=== PATIENT | female | born 2000 ===

== ENCOUNTER 2022-11-08 12:19 | Emergency (ER) | payer BC, SELFPAY ==
[2022-11-08 12:57] VITALS: BP 126/77; PULSE 85; RESP 20; TEMP 35.9; O2SAT 99; BMI 38.8
[2022-11-08 14:12] LABS: Appearance Urine Clear (Clear); Bilirubin Urine Negative (Negative); Blood Urine Negative (Negative); Color Urine Yellow (Yellow); Glucose Urine Negative (Negative); Ketones Urine 3+ (Negative); Leukocyte Esterase Urine Negative (Negative); Nitrite Urine Negative (Negative); Protein Urine Negative (Negative); Urobilinogen Urine 0.2 (0.2-1.0); pH Urine 7.5 (5.0-8.5)
[2022-11-08 14:28] LABS: Bacteria Urine Moderate; RBC Urine 0-2 (0-2); Squamous Epithelial Cell Urine Many (None-Few)
--- NOTE | 2022-11-08 14:49 | ED.BACK ---
HPI - Back Pain/Injury General Time Seen by Provider: 14:50 Date Seen: 11/08/22 Chief Complaint: Back Injury/Pain Stated Complaint: back pain Time Seen by Provider: 11/08/22 12:31 Source: patient, family, RN notes reviewed and old records reviewed Mode of arrival: ambulatory Limitations: no limitations History of Present Illness HPI Narrative: 22-year-old who is at 9+ 2 by LMP September 04 presents with back pain. Patient says that she has had this for about a month off and on, related to heavy lifting at work. No chest pain or shortness of breath. No urinary symptoms. Took Tylenol with some improvement. Related Data Previous Rx's Medication Instructions Recorded lidocaine 5 % topical patch 2 patch topical DAILY #15 ea 11/08/22 (Lidoderm) ondansetron 4 mg disintegrating 4 mg PO Q6H PRN nausea and 11/08/22 tablet vomiting #20 tabs Allergies Allergy/AdvReac Type Severity Reaction Status Date / Time amoxicillin [From Amoxil] Allergy Verified 11/08/22 12:56 Cephalosporins Allergy Verified 11/08/22 12:56 Penicillins Allergy Verified 11/08/22 12:56 Exam Narrative: Exam Narrative: General: Well-developed and well-nourished, no acute distress Head: Atraumatic and normocephalic Eyes: Pupils are equal reactive, extraocular motions intact, conjunctiva clear ENT: External nose and ears are normal, posterior pharynx without erythema or exudate Neck: No midline cervical tenderness, full spontaneous range of motion the neck, trachea midline, no adenopathy Heart: Regular rate and rhythm no murmurs or thrills Lungs: Clear to auscultation bilaterally without wheezes or crackles Abdomen: Soft, nontender, nondistended with active bowel sounds Musculoskeletal: Bilateral thoracic back tenderness, no midline tenderness Neurologic: Awake, alert, and oriented x3, no gross focal neurologic deficits, cranial nerves intact as tested Psych: Mood and affect are appropriate Skin: No rashes Const: Vital Signs, click to edit/add: Vital Signs - 24 hr 11/08/22 12:57 Temperature 96.6 F L Pulse Rate [Pulse Oximeter] 85 Respiratory Rate 20 Blood Pressure [Ri ght Upper Arm] 126/77 Pulse Oximetry 99 Oxygen Delivery Me thod Room Air Course Course Hospital Course: Patient presents with upper back pain which is been going on for about a month off and on, mostly related to work. On initial exam here, she is awake alert, has tenderness, lungs are clear. Symptoms are most consistent with thoracic strain. Patient is , no NSAIDs can be given but will be Lidoderm patches, continue Tylenol. Urinalysis independently interpreted by me contaminated with squamous cells and bacteria but no other signs of infection, no ketones or hematuria to suggest kidney stone and patient has no flank pain or CVA tenderness to percussion. No abdominal pain, cramping, vaginal bleeding, patient can follow-up with OB this week. Vital Signs Vital signs: Initial Vital Signs Temperature 96.6 F L 11/08/22 12:57 Temperature Source Temporal Artery Scan 11/08/22 12:57 Pulse Rate 85 11/08/22 12:57 Pulse Rhythm Regular 11/08/22 12:57 Respiratory Rate 20 11/08/22 12:57 Blood Pressure 126/77 11/08/22 12:57 Blood Pressure Mean 93 11/08/22 12:57 Blood Pressure Position Sitting 11/08/22 12:57 Pulse Oximetry 99 11/08/22 12:57 Oxygen Delivery Method Room Air 11/08/22 12:57 Vital Signs Temperature 96.6 F L 11/08/22 12:57 Pulse Rate 85 11/08/22 12:57 Respiratory Rate 20 11/08/22 12:57 Blood Pressure 126/77 11/08/22 12:57 Pulse Oximetry 99 11/08/22 12:57 Oxygen Delivery Method Room Air 11/08/22 12:57 Temperature 96.6 F L 11/08/22 12:57 Pulse Rate 85 11/08/22 12:57 Respiratory Rate 20 11/08/22 12:57 Blood Pressure 126/77 11/08/22 12:57 Pulse Oximetry 99 11/08/22 12:57 Oxygen Delivery Method Room Air 11/08/22 12:57 MDM - Back Pain/Injury Lab Data Labs: Lab Results 11/08/22 Range/Units 13:39 Urine Color Yellow (Yellow) Urine Appearance Clear (Clear) Urine pH 7.5 (5.0-8.5) Ur Specific [place] 1.020 (1.000-1.030) Urine Protein Negative (Negative) Urine Glucose (UA) Negative (Negative) Urine Ketones 3+ A (Negative) Urine Blood Negative (Negative) Urine Nitrite Negative (Negative) Urine Bilirubin Negative (Negative) Urine Urobilinogen 0.2 (0.2-1.0) Ur Leukocyte Esterase Negative (Negative) Urine RBC 0-2 (0-2) Urine WBC 2-5 (0-5) Ur Squamous Epith Cells Many A (None-Few) Urine Bacteria Moderate A (None) Discharge Plan Discharge Clinical Impression: Nausea and vomiting during , Thoracic back pain Patient Disposition: Home, Self-Care Condition: Stable Instructions: Thoracic Back Strain (ED) Additional Instructions: Take Tylenol as needed for pain. Ice packs or warm packs for comfort. Gentle massage. Follow up with OB. Activity Level: Activity as Tolerated Discharge Diet: Regular Prescriptions: New ondansetron 4 mg tablet,disintegrating 4 mg PO Q6H PRN (Reason: nausea and vomiting) Qty: 20 0RF lidocaine [Lidoderm] 5 % adhesive patch,medicated 2 patch topical DAILY Qty: 15 0RF Rx Instructions: leave on most painful area for up to 12 hrs Follow Up/Referrals: Provider,Not a Local [Primary Care Provider] - Stand Alone Forms: MyHealth Info Instructions
== END 2022-11-08 15:37 | disposition home or self-care (01) ==
LOC: ED 15:21
PROVIDERS: Emergency Provider Family Medicine
DX: O21.9 Vomiting of pregnancy, unspecified (principal); M54.6 Pain in thoracic spine
CPT/HCPCS: 81001; 87086; 99283

== ENCOUNTER 2022-11-13 09:11 | Outpatient (CLI) | payer BC, SELFPAY ==
--- NOTE | 2022-11-13 09:15 | CRLHL7_ITS ---
For Patients: As a result of the Century Cures Act, medical imaging exams and procedure reports are released immediately into your electronic medical record. You may view this report before your referring provider. If you have questions, please contact your health care provider. INDICATION: First trimester scan, establish dates. COMPARISON: None. TECHNIQUE: Real-time aguillon-scale imaging of the pelvis was performed. FINDINGS: Sonographic imaging demonstrates a single living intrauterine gestation. The embryo demonstrates a regular cardiac rate measuring 174 beats per minute. The embryo`s crown-rump length measurement of 2.4 cm corresponds to a gestational age of 9 weeks 1 day with a sonographic due date of 06/17/2023. There is a normal-appearing yolk sac. There are no gross abnormalities noted within the embryo at this early state of development. The gestational sac has a normal appearance. There is no evidence of a perigestational hemorrhage. The amount of fluid within the sac appears appropriate for gestational age. The cervix is closed. The myometrium appears normal. The ovaries are of normal size. Corpus luteal cyst left ovary. There are no suspicious fluid collections noted in the cul-de-sac. IMPRESSION: Normal first trimester OB ultrasound exam. Gestational age calculated at 9 weeks 1 day with a sonographic due date of 06/17/2023. Dictated by Malcolm Ochoa MD @ 11/14/2022 4:35:07 PM (Electronically Signed)
== END 2022-11-13 09:12 | disposition home or self-care (01) ==
LOC: US 09:12
PROVIDERS: Visit Provider Physician Assistant
DX: Z34.91 Encounter for supervision of normal pregnancy, unspecified, first trimester (principal); Z3A.09 9 weeks gestation of pregnancy
CPT/HCPCS: 76801; 86592; 86703; 86762; 86787; 86803; 86850; 86900; 86901; 87086; 87340

== ENCOUNTER 2022-11-26 21:44 | Outpatient (CLI) | payer BC, SELFPAY | END 2022-11-26 21:45 | disposition home or self-care (01) | LOC: NFLDLAB 01-03 21:45 | PROVIDERS: Visit Provider Physician Assistant | DX: D68.51 Activated protein C resistance (principal) | CPT/HCPCS: 85230 ==

== ENCOUNTER 2022-12-11 14:47 | Outpatient (CLI) | payer BC, SELFPAY | END 2022-12-11 14:48 | disposition home or self-care (01) | LOC: NFLDREF 12-16 11:45 | PROVIDERS: Visit Provider Physician Assistant | DX: Z34.92 Encounter for supervision of normal pregnancy, unspecified, second trimester (principal); Z3A.14 14 weeks gestation of pregnancy | CPT/HCPCS: 87491; 87591 ==

== ENCOUNTER 2023-01-22 13:54 | Outpatient (CLI) | payer BC, SELFPAY ==
--- NOTE | 2023-01-22 14:00 | CRLHL7_ITS ---
For Patients: As a result of the Century Cures Act, medical imaging exams and procedure reports are released immediately into your electronic medical record. You may view this report before your referring provider. If you have questions, please contact your health care provider. INDICATION: Evaluate anatomy. COMPARISON: 11/13/2022 TECHNIQUE: Real time aguillon scale imaging of the fetus was performed as well as color Doppler analysis of the umbilical vessels. FINDINGS: Sonographic imaging demonstrates a single living intrauterine gestation. Fetus demonstrates a regular cardiac rate of 157 beats per minute. Fetus has a variable position. The placenta lies posteriorly. The edge of the placenta is located 1.3 cm from the internal cervical os. Amniotic fluid volume appears normal. Single deepest vertical pocket: 3.4 cm. The cervix is closed and measures 3.1 cm in length. The composite ultrasound gestational age is calculated at 20 weeks 0 days with an estimated sonographic due date of 06/11/2023. The estimated weight is 326 grams which lies at the 46th %. The following biometric measurements were obtained: Biparietal diameter: 4.6 cm/20 weeks 0 day 50th% Head circumference: 17.0 cm/19 weeks 4 days 23rd% Abdominal circumference: 14.5 cm/19 weeks 6 days 39th% Femur length: 3.3 cm/20 weeks 2 days 53rd% The HC/AC ratio measures: 1.17 range (1.08-1.25) On anatomic survey, there is a normal appearance of the cerebral ventricles, cavum septi pellucidi, cisterna magna and cerebellum. The nose and lips appear normal. Incomplete visualization of the profile due to position. The cervical, thoracic and lumbar spine are well visualized and appear normal. There is a normal four-chamber heart view and the left and right ventricular outflow tracts appear normal. The diaphragm and stomach appear normal. The kidneys and bladder also appear normal. There is a normal three-vessel cord and cord insertion site. The four extremities appear normal. IMPRESSION: Concordance of clinical and sonographic dating. Incomplete visualization of the profile due to position. Remainder of the anatomic survey normal. Placental edge is located 1.3 cm from the internal cervical os with transabdominal imaging. Patient declined transvaginal technique for further evaluation of this finding. Dictated by Malcolm Ochoa MD @ 01/25/2023 4:00:12 PM (Electronically Signed)
== END 2023-01-22 13:55 | disposition home or self-care (01) ==
LOC: US 13:55
PROVIDERS: Visit Provider Obstetrics & Gynecology
DX: Z34.92 Encounter for supervision of normal pregnancy, unspecified, second trimester (principal); Z3A.20 20 weeks gestation of pregnancy
CPT/HCPCS: 76805

== ENCOUNTER 2023-02-04 07:00 | Outpatient (CLI) | payer BC, SELFPAY ==
--- NOTE | 2023-02-04 07:15 | CRLHL7_ITS ---
For Patients: As a result of the Century Cures Act, medical imaging exams and procedure reports are released immediately into your electronic medical record. You may view this report before your referring provider. If you have questions, please contact your health care provider. INDICATION: OBESITY UNSPECIFIED, follow-up missing anatomy COMPARISON: 01/22/2023 TECHNIQUE: Real time aguillon scale imaging of the fetus was performed. FINDINGS: Sonographic imaging demonstrates a single living intrauterine gestation. Fetus demonstrates a regular cardiac rate of 149 beats per minute. Fetus has a vertex position. The placenta lies posteriorly. Amniotic fluid volume appears normal and there is a single deepest vertical pocket: 5.5 cm. The cervix is closed and measures 3.4 cm. The edge of the placenta is located 2.1 cm from the internal cervical os. Normal profile. IMPRESSION: Posterior placental edge is located 2.1 cm from the internal cervical os. Normal profile. Dictated by Malcolm Ochoa MD @ 02/04/2023 8:25:23 AM (Electronically Signed)
== END 2023-02-04 07:01 | disposition home or self-care (01) ==
PROVIDERS: Visit Provider Obstetrics & Gynecology
DX: O99.210 Obesity complicating pregnancy, unspecified trimester (principal)
CPT/HCPCS: 76816

== ENCOUNTER 2023-03-19 09:10 | Outpatient (CLI) | payer BC, SELFPAY | END 2023-03-19 09:11 | disposition home or self-care (01) | LOC: NFLDREF 03-24 12:22 | PROVIDERS: Visit Provider Obstetrics & Gynecology | DX: Z34.93 Encounter for supervision of normal pregnancy, unspecified, third trimester (principal); Z3A.28 28 weeks gestation of pregnancy | CPT/HCPCS: 86592 ==

== ENCOUNTER 2023-04-30 14:19 | Outpatient (CLI) | payer BC, SELFPAY ==
--- OUTSIDE RECORDS SUMMARY | 2023-05-03 08:18 | XMS_ITS | Clinical Summary ---
Author Name Unknown Organization [facility] [facility] Address [place], [place] [address] Care Team Providers Care Stone [employer]ber Name Role Phone Pcp, No Primary Care Provider Unavailabl e Allergies Active Allergy Reactions Criticality Noted Date Comments Amoxicillin Hives 07/29/2022 Cephalosporins *Unknown 07/29/2022 Penicillins Throat Swelling/Closing High 07/29/2022 Medications No known medications Active Problems Problem Noted Date Diagnosed Date Asthma, mild intermittent 07/29/2022 Overview: Not currently on medication thinks was on Albuterol Family History Medical History Relation Name Comments ADD / ADHD Brother Hyperlipidemia Father Hyperlipidemia Mother Hypertension Mother Blood Disease Sister 1 factor 7 defic iency Heart defect Sister 1 Blood Disease Sister 2 Factor 7 def Good Health Sister 3 Relation Name Status Comments Brother Father Mother Sister 1 Sister 2 Alive Sister 3 Alive Social History Tobacco Use Types Packs/Day Years Used Date Smoking Tobacco: Never Smokeless Tobacco: Never Tobacco Cessation:Counseling Given: Not Answered Alcohol Use Standard Drinks/Week Comments Not Currently 0 (1 standard drink = 0.6 oz pur e alcohol) Social Connections Answer Date Recorded Frequency of Communication with Friends and Fami ly Not on file 07/29/2022 Sex and Gender Information Value Date Recorded Sex Assigned at Not on file Gender Identity Not on file Sexual Orientation Not on file Obstetrics History Last Filed Vital Signs Vital Sign Reading Time Taken Comments Blood Pressure 127/81 09/14/2022 2:05 PM CDT Pulse 89 09/14/2022 2:05 PM CDT Temperature 37 ??C (98.6 ??F) 09/14/2022 2:05 PM CDT Respiratory Rate - - Oxygen Saturation 98% 09/14/2022 2:05 PM CDT Inhaled Oxygen Concentration - - Weight 94.3 kg (207 lb 12.8 oz) 09/14/2022 2:05 PM CDT Height - - Body Mass Index - - Plan of Treatment Health Maintenance Due Date Last Done Comments Pneumococcal series for age 6-64 (1 of 2 - PCV) 10/21/2005 HPV series for age 9-26 (1 - 2-dose series) 10/21/2010 Tdap 10/21/2010 Depression screening for age 12+ 2011 HIV for age 15-65 10/21/2014 Chlamydia for age 16-24 2015 BMI (ht and wt on same day) for age 18+ 10/21/2017 Hepatitis C screening for age 18-79 10/21/2017 Tetanus booster 2019 Pap test for age 21-65 10/21/2020 COVID-19 vaccine series (2022- season) 2022 08/26/2021, 06/21/2020, 05/23/2020 Influenza for age 9-49 11/20/2022 Care Teams Stone Rubber Relationship Specialty Start Date End Date Pcp, No . PCP - General 07/29/22
== END 2023-04-30 14:20 | disposition home or self-care (01) ==
LOC: NFLDREF 05-03 08:14
PROVIDERS: Visit Provider Obstetrics & Gynecology
DX: Z34.83 Encounter for supervision of other normal pregnancy, third trimester (principal)
CPT/HCPCS: 82728

== ENCOUNTER 2023-05-14 14:00 | Outpatient (CLI) | payer BC, SELFPAY | END 2023-05-14 14:01 | disposition home or self-care (01) | LOC: NFLDREF 05-26 12:50 | PROVIDERS: Visit Provider Obstetrics & Gynecology | DX: Z34.93 Encounter for supervision of normal pregnancy, unspecified, third trimester (principal) | CPT/HCPCS: 87081; 87653 ==

== ENCOUNTER 2023-05-18 11:43 | Outpatient (CLI) | payer BC, SELFPAY ==
[2023-05-18 12:07] VITALS: BP 108/59; PULSE 103; PULSE 90; O2SAT 96
[2023-05-18 12:09] VITALS: RESP 18; TEMP 36.6
--- NOTE | 2023-05-18 12:46 | PC.OBNST ---
The provider's electronic signature indicates the NST is reactive/appropriate for gestational age. *Note to provider: If an addendum is required, open the patient's chart and click on the note under the Nurse/Allied Health tab.
--- NOTE | 2023-05-18 12:50 | PC.OBNST ---
NST Note NST Note Start: 05/18/23 12:41 Freq: ONCE Status: Active Protocol: Document 05/18/23 12:47 LAURA (Rec: 05/18/23 12:50 LAURA [email or web address]) NST Note 1 Para (# of births) 0 EDC 06/11/23 Gestational Age In Weeks & Days 36 Weeks & 4 Days Patient Presented with Complaint(s) of Decreased movement Other Complaints Pt called [facility] triage with c/o no movement since last night. Struggled with N/V overnight. Reactive Yes Appropriate for Gestational Age Yes JACINTA Hughes RN Date 05/18/23 Reactive Yes Appropriate for Gestational Age Yes JACINTA Wilde RN Date 05/18/23 OB NST charge Yes Complete NST Note via Write Note Yes The provider's electronic signature indicates the NST is reactive/appropriate for gestational age. *Note to provider: If an addendum is required, open the patient's chart and click on the note under the Nurse/Allied Health tab.
== END 2023-05-18 12:38 | disposition home or self-care (01) ==
LOC: OB OUT 11:44 → OB 11:44
PROVIDERS: Visit Provider Obstetrics & Gynecology
DX: O36.8130 Decreased fetal movements, third trimester, not applicable or unspecified (principal); Z3A.36 36 weeks gestation of pregnancy
CPT/HCPCS: 59025; G0463

== ENCOUNTER 2023-05-21 07:17 | Outpatient (CLI) | payer BC, SELFPAY ==
--- NOTE | 2023-05-21 07:15 | US_ITS ---
Patient: VÍCTOR SHARP Facility:?[facility] Patient ID:?[id number] Site Patient ID:?[id number]. Site :?[id number] Study:?US-OB Pelvis BPP W GROWTH-05/21/2023 7:44:33 AM Ordering Physician:DICK WEBB Final Report: INDICATION: OBESITY TECHNIQUE: Real time aguillon scale imaging of the fetus was performed. COMPARISON: 02/04/2023 FINDINGS: Sonographic imaging demonstrates a single living intrauterine gestation. Fetus demonstrates a regular cardiac rate of 129 beats per minute. Fetus has a vertex position. The placenta lies posterior. Amniotic fluid volume appears normal and there is a single deepest pocket of 4.2 cm. The estimated weight is 2867gm which lies at the 34th %. On the prior OB ultrasound dated 01/22/2023 the estimated weight was at the 46th percentile. BPD 41st percentile. HC 11th percentile. AC 47th percentile. FL is 16th percentile. The fetus was active and demonstrated normal breathing movements. There was normal flexion and extension of the trunk and extremities. IMPRESSION: Normal biophysical profile score 8/8. Sonographic gestational age 36 weeks 1 day and sonographic due date of 06/17/2023. Sonographic age is 6 days behind the clinical age. Estimated weight 34th percentile. Abdominal circumference 47th percentile. Dictated by Malcolm Ochoa MD @ 05/21/2023 9:28:38 AM Signed by:?Malcolm Ochoa MD @05/21/2023 9:28:38 AM (Electronic Signature)
== END 2023-05-21 07:18 | disposition home or self-care (01) ==
LOC: US 07:17
PROVIDERS: Visit Provider Obstetrics & Gynecology
DX: O99.213 Obesity complicating pregnancy, third trimester (principal); Z3A.36 36 weeks gestation of pregnancy
CPT/HCPCS: 76816; 76819

== ENCOUNTER 2023-05-29 23:09 | Inpatient (IN) | payer BC, SELFPAY ==
[2023-05-29 21:47] VITALS: BP 141/75; PULSE 88
[2023-05-29 22:04] LABS: Amnisure Rom* POSITIVE
[2023-05-29 22:29] VITALS: BP 142/83; PULSE 107
[2023-05-29 23:42] LABS: Hematocrit 32.8 % (33.0-51.0); Hemoglobin* 10.8 gm/dL (12.0-16.0); Mean Corpuscular HGB Conc 33 gm/dL (32-36); Mean Corpuscular Hemoglobin 27 pg (26-34); Mean Corpuscular Volume 81 fL (80-100); Platelet Count* 247 K/uL (140-440); Red Blood Count 4.05 m/uL (4.00-5.20)
[2023-05-29 23:46] LABS: Slide Review Reflex No
[2023-05-29 23:53] VITALS: BMI 42.6
[2023-05-29 23:56] VITALS: RESP 16; TEMP 36.8
[2023-05-29 23:59] LABS: Creatinine* 0.4 mg/dL (0.5-1.5); Estimated Glomerular Filt Rate 143 ml/min
[2023-05-30] VITALS (82 sets, daily range): BP systolic 74–140; BP diastolic 38–74; PULSE 82–212; RESP 16–18; TEMP 36.4–38.2; O2SAT 90–100
[2023-05-30] LABS: Alanine Aminotransferase* 17 U/L (4-35); Aspartate Amino Transferase* 20 U/L (12-35); Blood Urea Nitrogen* 8 mg/dL (5-24)
[2023-05-30] MEDS: miSOPROStoL 25 MCG/0.25 TABLET PO ×3 (00:21→06:39)
[2023-05-30 00:53] LABS: Total Protein Urine 17 mg/dL
[2023-05-30 00:54] LABS: Creatinine Urine 50.9 mg/dL
[2023-05-30] MEDS: MORPHINE 10 MG/ML inj IM (03:59)
[2023-05-30] MEDS: hydrOXYzine pamoate 25 MG CAPSULE 100 MG PO (03:59)
[2023-05-30] MEDS: LACTATED RINGERS 1000 ML 1,000 ML 200 ML IV (08:46)
--- NOTE | 2023-05-30 09:23 | W.PM.LDBA ---
Subjective History of Present Illness Date Seen: 05/30/23 Narrative: Patient is being admitted to Labor and Delivery for PROM at term. She is a 22 year old at 38 weeks, 2 days gestation. She had spontaneous rupture of membranes at home at around 8:00 p.m. on 05/29/2023. Of note, she has had several elevated BP in the mild range; systolics in the 140s. Her full history and physical was dictated by me on 05/21/23. Please see this for details. Specific Issues/Plans Baby: Boy (Cathie or Flora) 1. Obesity, BMI 38.5 Hemoglobin A1c: 5.5% Aspirin 81 mg 12 weeks Early 1 hr gtt due to BMI and high risk ethnicity: 92 1 hr gtt at 28 weeks: 86 Growth at 37 weeks: EFW 34%, AC 47%, normal fluid, BPP 8/8 Weekly BPP at 37 weeks 2. Nausea and vomiting Vitamin B6 and Unisom added at new OB Zofran p.r.n. 3. Low lying placenta on anatomy scan Posterior placenta 1.3 cm form internal os but patient refused transvaginal ultrasound US on 02/04/2023: Posterior placental edge is located 2.1 cm from the internal cervical os 4. Covid within 02/13-02/22. 5. Hx of Asthma Last took inhaler 2-3 years ago 6. Anemia, with Hb 10.7 on 04/30/23 PO iron replacement Patient refused Pap (no previous pap) and gonorrhea and chlamydia screening at 1st OB - Declined pap in . Would like it TDAP: Declined Covid: Declined Flu: Declined H&P: 05/21/23 Dr. Ogden OB - Problem Based A/P Additional Plan (1) PROM with onset of labor within 24 hours of rupture: Status: Acute Plan: Now in active labor. She has received an epidural. Reassuring status with category 1 tracing. GBS negative. Continuous monitoring. Anticipate spontaneous vaginal delivery. (2) Anemia: Status: Acute (3) Gestational hypertension: Status: Acute Plan: Currently without severe features. Continue to monitor. Delivery/Labor/Induction Plan Plan: expectant management OB Result Labs Labs: CBC: Hemoglobin 10.8, hematocrit 32.8, platelets 247. Creatinine 0.4 BUN 8 AST 20 ALT 17 Labs GBS Status: negative OB Exam Physical Exam Vital signs: Temp Pulse Resp BP 98.1 F 85 18 130/73 05/30/23 07:36 05/30/23 08:08 05/30/23 07:36 05/30/23 08:08 Narrative: Physical exam: General: No acute distress Psych: Alert and oriented x3, full affect HEENT: Normocephalic, atraumatic, oropharynx benign Neck: No cervical adenopathy, no thyromegaly Heart: Regular rate and rhythm, no murmur rub or gallop Lungs: Clear to auscultation bilaterally Abdomen: Normoactive bowel sounds, soft, no tenderness, rebound, or guarding, no masses, no hepatosplenomegaly, no hernias Skin: No lesions or rashes Breasts: no nodules or masses, no nipple discharge, no axillary adenopathy Lower extremities: No edema or erythema Pelvic exam: at time of presentation, ruptured membranes were confirmed with AmniSure and her cervix was closed. She had 3 doses of oral cytotec. My exam at 11 AM is 8.5 / 100 / -1 tracing: Baseline 130, accelerations present, no decelerations, moderate variability. Detailed Labor and Delivery Exam Dilation (cm): 8 Effacement (%): 100 Consistency: soft
[2023-05-30] MEDS: LIDOCAINE 2% (PF) 5 ML VIAL EPIDURAL (09:49)
[2023-05-30] MEDS: ROPIVACAINE 0.2% 100 ml 100 ML 9 MG EPIDURAL (09:49)
--- NOTE | 2023-05-30 10:04 | PM.ANBPRC ---
[facility] Medical History (Updated 05/30/23 @ 09:25 by Ellie Ogden MD) Asthma ?J45.909 - Unspecified asthma, uncomplicated (ICD-10) Tonsil stone ?J35.8 - Other chronic diseases of tonsils and adenoids (ICD-10) Surgical History (Updated 05/21/23 @ 09:11 by Ellie Ogden MD) H/O myringotomy ?Z98.890 - Other specified postprocedural states (ICD-10) History of tonsillectomy ?Z90.89 - Acquired absence of other organs (ICD-10) Family History (Updated 05/21/23 @ 09:12 by Ellie Ogden MD) Mother High blood pressure High cholesterol Father High cholesterol Sister Factor VII deficiency Other Diabetes Lung cancer Social History (Updated 05/21/23 @ 09:13 by Ellie Ogden MD) Narrative: History of blood transfusion: no. 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 Lives in [place] with . Roman Catholic/cultural needs: no. Chemical or radiation exposure: no. Pre- tobacco use: no. Pre- alcohol use: 1 per week. Current tobacco use: no. Current alcohol use: no. Recreational drug use: no. Dietary restrictions: no. Blood transfusion acceptable in an emergency: yes PSYCHOSOCIAL HISTORY: History of depression or currently depressed: no. Current or past physical, emotional, or sexual mistreatment: no. Problems that will make it hard to make it to appointments: no What is your current living situation?: I presently have a place to live Problems where you live: no known problems In the past 12 months, utilities in danger of being shut off: no In past 12 months, lack of transportation kept you from medical appts, meetings, work, or getting things needed for daily living: no In the past 12 mos, have been you worried that your food would run out before you had money to buy more?: never true In the past 12 mos, the food you bought just didn't last and you didn't have money to buy more?: never true Smoking Status: Never smoker Do you use any of these nicotine containing products: None How often do you have a drink containing alcohol: never AUDIT-C Alcohol total score: 0 Non-prescribed substance use: denies use How often does anyone, including family, friends and others, physically hurt you: never How often does anyone, including family, friends and others, insult or talk down to you: never How often does anyone, including family, friends and others, threaten you with harm: never How often does anyone, including family, friends and others, scream or curse at you: never Little interest or pleasure in doing things: not at all Feeling down, depressed, or hopeless: several days Meds Home Medications and Allergies Home Medications Medication Instructions Recorded Confirmed Type acetaminophen 500 mg tablet 500 mg PO Q6H PRN 11/13/22 05/30/23 History (Tylenol Extra Strength) docosahexaenoic acid 200 mg 200 mg PO DAILY 11/13/22 05/30/23 History capsule ( DHA) aspirin 81 mg tablet,delayed 81 mg PO QDAY 01/08/23 05/30/23 History release (Adult Low Dose Aspirin) Allergies Allergy/AdvReac Type Severity Reaction Status Date / Time amoxicillin [From Amoxil] Allergy Verified 05/28/23 08:15 Cephalosporins Allergy Verified 05/28/23 08:15 Penicillins Allergy Verified 05/28/23 08:15 Results Labs Labs: Laboratory Results - last 24 hr 05/29/23 05/29/23 05/30/23 21:55 23:35 00:20 WBC 10.90 RBC 4.05 Hgb 10.8 L Hct 32.8 L MCV 81 MCH 27 MCHC 33 Plt Count 247 BUN 8 Creatinine 0.4 L Estimated GFR 143 AST 20 ALT 17 Urine Creatinine 50.9 Protein/Creatinin Ratio 0.30 H Urine Total Protein 17 Membrane Rupture POSITIVE Blood Type A Positive Antibody Screen NEGATIVE Vital Signs Vital Signs: Last Vital Signs Temp 98.2 F 05/30/23 09:50 Pulse 104 H 05/30/23 09:58 Resp 18 05/30/23 09:50 BP 139/62 05/30/23 09:58 Pulse Ox 100 05/30/23 09:42 Weight: 99.065 kg Height: 152.4 cm Anesthesia Procedures Epidural Insertion Patient Location: OB Start Time: :20 Stop Time: 09:50 Start Date: 05/30/23 Stop Date: 05/30/23 Reason for Block: procedure for pain Patient Position: sitting Performed By: Oren Fuller Preanesthetic Checklist: IV checked, risks and benefits discussed, monitors and equipment checked, pre-op evaluation, timeout performed and anesthesia consent Prep: chlorhexidine gluconate Monitoring: blood pressure monitoring, continuous pulse oximetry and heart rate Approach: midline Vertebral Space: lumbar (1-5) Epidural Technique: FRANCK saline Needle Type: Tuohy needle Injection Technique: continuous catheter Needle gauge: 17 Needle Length (cm): 10 cm Needle Insertion Depth (cm): 9 Catheter Gauge: 19 Catheter Type: multi-orifice Catheter at skin depth (cm): 15 Test Dose Result: negative and lidocaine 1.5% with epinephrine 1 to 200,000
[2023-05-30] MEDS: LACTATED RINGERS 1000 ML 1,000 ML 125 ML IV (12:34)
--- NOTE | 2023-05-30 13:36 | PM.OBPNL ---
Subjective Time Seen by Provider: 13:00 Date Seen: 05/30/23 Narrative: Jeane is a 22 yo woman at 38 2/7 weeks' gestation with PROM at 8 PM on 05/28. She had 3 doses of oral cytotec and progressed into active labor. She has been sleeping since her last exam. She isn't feeling contractions. Objective Exam: Gen - sleeping when I enter, accompanied by her . Cervical exam - complete, +2 Vital Signs: Last Vital Signs Temp 98.9 F 05/30/23 13:33 Pulse 115 H 05/30/23 13:22 Resp 16 05/30/23 13:33 BP 102/63 05/30/23 13:22 Pulse Ox 100 05/30/23 09:42 Comments: tracing: Baseline 130 / accelerations present / no decelerations / moderate variability Assessment Assessment: active labor Status: Category l Tracing Comments: Reassuring Labor Progress: Second stage labor Maternal Status: Reassuring. Gestational HTN diangosed at admit, with normal pressures in recent history Plan Plan: Begin pushing. Continuous monitoring. Anticipate .
[2023-05-30] MEDS: OXYTOCIN 30 unit/500 ML in NS 30 UNIT/500 ML BAG 300 UNIT IVPB (14:32)
[2023-05-30] MEDS: LIDOCAINE 1 % PF 30 ML INJECTION (14:32)
[2023-05-30] MEDS: fentaNYL 100 MCG/2 ML inj 50 MCG IVP (15:13)
--- NOTE | 2023-05-30 15:42 | W.PM.VAGDEL1 ---
Procedure Procedure Done: [facility] Procedure Details: The patient is a 22 year-old G 1 P 0 admitted on 05/30/2023 at 38 Weeks, 2 Days gestation for premature rupture of membranes at term.? Cervical exam on admission was closed with membranes ruptured in vertex presentation.? Contractions were every 5 minutes.? heart rate demonstrated category 1 tracing.? SROM had occurred at approximately 8:00 p.m. on 05/29/2023 with clear fluid. ? She had 3 doses of oral Cytotec, after which time she progressed in to active labor. Labor Analgesia:? IV narcotics, followed by epidural ? Pitocin:? No ? Complete:? 1:11 p.m. ? Pushing:? 1:15 p.m. ? heart tones during second stage were reassuring. ? At 2:24 p.m. a viable male delivered in vertex OA presentation over second-degree perineal laceration via spontaneous vaginal delivery.? Infant was placed on maternal abdomen.? Cord was clamped and cut after greater than 60 seconds.? Nose and mouth were bulb suctioned.? Infant weight pending.? 8 at 1 minute and 9 at 5 minutes.? Shoulder dystocia: No.? Nuchal cord: No. ? Placenta delivered spontaneously and complete at 2:30 p.m. with a 3 vessel cord. ? Mother and infant were stable after delivery. ? Lacerations:? Second-degree perineal and periurethral laceration. These were infiltrated with a total of approximately 15 mL of 1% lidocaine and reapproximated with 2-0 and 3-0 Vicryl. During the repair, there was profuse bleeding from the periurethral laceration, and persistent moderate bleeding from the perineal laceration, requiring multiple additional suture placements. Ultimately, vaginal packing was placed once the perineum was well approximated. ? Blood loss: 500 mL. Blood loss measurement type: EBL. This loss was related to the bleeding from the lacerations, and not to atony. ? Sponge and needles counts are correct.
[2023-05-30] MEDS: LACTATED RINGERS 500 ML IV (17:23)
[2023-05-30 17:38] LABS: Basophils Percent Auto 0.1 % (0.0-3.0); Hematocrit 24.6 % (33.0-51.0); Immature Granulocytes Pct Auto 0.2 %; Lymphocytes Percent Auto 13.9 % (20-44); Mean Corpuscular HGB Conc 33 gm/dL (32-36); Mean Corpuscular Hemoglobin 26 pg (26-34); Mean Corpuscular Volume 81 fL (80-100); Monocytes Percent Auto 4.8 % (0.0-11.0); Platelet Count* 210 K/uL (140-440); RDW Coefficient of Variation % 15.2 % (11.5-15.5); Red Blood Count 3.03 m/uL (4.00-5.20)
[2023-05-30 17:42] LABS: Slide Review Reflex No
[2023-05-30] MEDS: FERROUS SULFATE 325 MG TABLET 650 MG PO (17:52)
--- NOTE | 2023-05-30 17:52 | P.OBPN_ITS ---
OB - PN:Subj Subjective Date Seen: 05/30/23 Interval history: Jeane is a 22 yo G1 now P1-0-0-1 woman status post normal spontaneous vaginal delivery at 38 weeks, 2 days gestation earlier today. She had a spontaneous vaginal delivery complicated by hemorrhage of approximately 500 mL related to bleeding perineal and periurethral lacerations. Vaginal packing was placed after completion of the repair. She had a single dose of 50 mcg of IV fentanyl during the repair. I was called by her nurse with reports that she had low blood pressure, with the lowest reading 75/38, and tachycardia, with highest readings in the 120s. Upon attempting to rise, she felt dizzy. Her temperature was initially elevated to 100.7, but repeat was 99.7. Her vaginal packing was removed, and her bleeding was found to be appropriate. She has not voided since giving . At this time, she is feeling hungry, and eating dinner. OB - PN: Obj Exam Physical Exam: Vital signs: Temp Pulse Resp BP Pulse Ox 99.7 F H 112 H 16 100/54 L 98 05/30/23 17:24 05/30/23 17:38 05/30/23 17:24 05/30/23 17:38 05/30/23 17:48 Narrative: General: Pleasant, no acute distress Heart: Tachycardic, regular rhythm, early systolic flow murmur, no gallop Lungs: Clear to auscultation bilaterally Abdomen: Soft, nontender, fundus well below umbilicus Lower extremities: No edema or erythema Perineum: No heavy bleeding noted OB - PN: Obj Data Labs Labs: Laboratory Results - last 24 hr 05/29/23 05/29/23 05/30/23 21:55 23:35 00:20 WBC 10.90 RBC 4.05 Hgb 10.8 L Hct 32.8 L MCV 81 MCH 27 MCHC 33 RDW Coeff of Lionel Plt Count 247 Neut % (Auto) Lymph % (Auto) [place] % (Auto) Eos % (Auto) Baso % (Auto) Neut # (Auto) Lymph # (Auto) [place] # (Auto) Eos # (Auto) Baso # (Auto) Abs Immat Gran (auto) Imm/Tot Granulo (auto) BUN 8 Creatinine 0.4 L Estimated GFR 143 AST 20 ALT 17 Urine Creatinine 50.9 Protein/Creatinin Ratio 0.30 H Urine Total Protein 17 Membrane Rupture POSITIVE Blood Type A Positive Antibody Screen NEGATIVE 05/30/23 17:32 WBC 17.00 H RBC 3.03 L Hgb 8.0 L Hct 24.6 L MCV 81 MCH 26 MCHC 33 RDW Coeff of Lionel 15.2 Plt Count 210 Neut % (Auto) 81.0 H Lymph % (Auto) 13.9 L [place] % (Auto) 4.8 Eos % (Auto) 0.0 Baso % (Auto) 0.1 Neut # (Auto) 13.80 H Lymph # (Auto) 2.40 [place] # (Auto) 0.80 Eos # (Auto) 0.00 Baso # (Auto) 0.00 Abs Immat Gran (auto) 0.00 Imm/Tot Granulo (auto) 0.2 BUN Creatinine Estimated GFR AST ALT Urine Creatinine Protein/Creatinin Ratio Urine Total Protein Membrane Rupture Blood Type Antibody Screen OB - PN: A/P Delivery Assessment and Plan (1) Normal spontaneous vaginal delivery: Status: Acute (2) hemorrhage: Problem details: 500 mL blood loss related to obstetrical lacerations, now repaired Status: Acute (3) Anemia due to acute blood loss: Status: Acute Assessment and Plan: Superimposed upon anemia of . Drop in hemoglobin from 10.8-8.0 mg/dL. I will repeat her complete blood count in the morning. If she has persistent difficulties with presyncope when standing, I favor transfusion of 1 unit of packed red cells. 500 mL bolus now. Plan She did have 1 elevated temperature. Risk factors for endometritis include rupture of membranes of about 18 hours duration. If she has a recurrent temperature of greater than 100.2, I will initiate gentamicin and clindamycin fo r empiric treatment of endometritis. Plan day: 0
[2023-05-30] MEDS: IBUPROFEN 600 MG TABLET PO (21:28)
[2023-05-30] MEDS: ACETAMINOPHEN 500 MG TABLET 1000 MG PO (23:45)
[2023-05-30] MEDS: LANOLIN CREAM 1 APPLIC TOPICAL (23:46)
[2023-05-31] VITALS (9 sets, daily range): BP systolic 91–134; BP diastolic 59–78; PULSE 69–94; RESP 12–18; TEMP 36.2–36.8; O2SAT 97–99
[2023-05-31 03:00] LABS: Basophils Percent Auto 0.1 % (0.0-3.0); Hematocrit 24.1 % (33.0-51.0); Immature Granulocytes Pct Auto 0.3 %; Lymphocytes Percent Auto 25.4 % (20-44); Mean Corpuscular HGB Conc 33 gm/dL (32-36); Mean Corpuscular Hemoglobin 27 pg (26-34); Mean Corpuscular Volume 81 fL (80-100); Monocytes Percent Auto 5.2 % (0.0-11.0); Platelet Count* 207 K/uL (140-440); RDW Coefficient of Variation % 15.5 % (11.5-15.5); Red Blood Count 2.97 m/uL (4.00-5.20); White Blood Count* 15.43 K/uL (4.50-11.00)
[2023-05-31 03:02] LABS: Hemoglobin* 7.9 gm/dL (12.0-16.0); Slide Review Reflex No
[2023-05-31] MEDS: IBUPROFEN 600 MG TABLET PO (03:21)
--- NOTE | 2023-05-31 08:32 | P.OBPN_ITS ---
OB - PN:Subj Subjective Date Seen: 05/31/23 Interval history: Jeane is a 22 yo G1 now P1-0-0-1 woman status post normal spontaneous vaginal delivery at 38 weeks, 2 days gestation earlier today. She had a spontaneous vaginal delivery complicated by hemorrhage of approximately 500 mL related to bleeding perineal and periurethral lacerations. Vaginal packing was placed after completion of the repair. She had a single dose of 50 mcg of IV fentanyl during the repair. I was called by her nurse with reports that she had low blood pressure, with the lowest reading 75/38, and tachycardia, with highest readings in the 120s. Upon attempting to rise, she felt dizzy. Her temperature was initially elevated to 100.7, but repeat was 99.7. Her vaginal packing was removed, and her bleeding was found to be appropriate. She has not voided since giving . At this time, she is feeling hungry, and eating dinner. 05/30/23 Hgb 8.0. She received 1 unit RBCs on 05/29/22. VS were improved on 05/31/23 and denies feeling dizzy. Hgb 7.9. Received 1 additional unit RBCs. Patient comments OB post-: pain well controlled, tolerating diet and flatus present infant status: (supplementing with formula ) feeding status: exclusively bottle feeding Narrative: The patient feels well.? The pain is well controlled with current medications.? She has no new complaints.? Urinary output is adequate and she is voiding without difficulty.? Has a good appetite, is tolerating a general diet, is passing flatus, and has not had a bowel movement.? Has scant amount of rubra lochia only soaking tucks pads with a scant amount on the pads.? She is ambulating well.?Denies feeling light headed or dizzy today. Encouraged her to get up only with assistance nearby due to her blood pressures and low Hgb. After consultation with Dr. Whitehead. Ordered 1 unit RBCs due to low Hgb unimproved by the previous unit. Repeat Hgb ordered for tomorrow morning. She is and working on the latch. Encouraged her to ask for RN help and if desires. OB - PN: Obj Exam Physical Exam: Vital signs: Temp Pulse Resp BP Pulse Ox O2 Del Method 97.3 F L 75 16 97/67 98 Room Air 05/31/23 07:47 05/31/23 07:47 05/31/23 07:47 05/31/23 07:47 05/31/23 03:31 05/31/23 03:31 Narrative: GENERAL APPEARANCE:? normal affect, alert, no distress? MOOD:? appropriate? CHEST:? clear to auscultation and percussion? HEART:? regular rate and rhythm? ABDOMEN:? soft, non-tender the uterine fundus is U/2 and is appropriate for the stage of recovery.? PERINEUM:? mild edema of the perineum, there is a 2nd degree and periurethral that is healing well.? EXTREMITIES:? normal and no edema? OB - PN: Obj Data Labs Labs: Laboratory Results - last 24 hr 05/30/23 05/31/23 17:32 02:55 WBC 17.00 H 15.43 H RBC 3.03 L 2.97 L Hgb 8.0 L 7.9 L* Hct 24.6 L 24.1 L MCV 81 81 MCH 26 27 MCHC 33 33 RDW Coeff of Lionel 15.2 15.5 Plt Count 210 207 Neut % (Auto) 81.0 H 69.0 Lymph % (Auto) 13.9 L 25.4 [place] % (Auto) 4.8 5.2 Eos % (Auto) 0.0 0.0 Baso % (Auto) 0.1 0.1 Neut # (Auto) 13.80 H 10.60 H Lymph # (Auto) 2.40 3.90 H [place] # (Auto) 0.80 0.80 Eos # (Auto) 0.00 0.00 Baso # (Auto) 0.00 0.00 Abs Immat Gran (auto) 0.00 0.00 Imm/Tot Granulo (auto) 0.2 0.3 Blood Type A Positive Antibody Screen NEGATIVE Crossmatch (AHG) See Detail OB - PN: A/P Delivery Assessment and Plan (1) hemorrhage: Problem details: 500 mL blood loss related to obstetrical lacerations, now repaired Status: Acute (2) Anemia due to acute blood loss: Status: Acute Assessment and Plan: Received 2 units RBCs (one on 05/30/23 and one on 05/31/23) (3) care following vaginal delivery: Status: Acute (4) Lactating mother: Status: Acute (5) Gestational hypertension: Status: Acute (6) Anemia: Status: Acute (7) Obesity (BMI 30-39.9): Status: Acute Plan day: 1 Plan: routine care Comments: 1 unit RBCs to be infused. Repeat Hgb 05/31. Anticipate discharge home tomorrow.
--- NOTE | 2023-05-31 09:34 | PM.ANPOST ---
Post Anesthesia Note Post Anesthesia Note Patient seen: Inpatient Respiratory Status: adequate Cardiovascular Status: adequate Mental Status: baseline Pain: adequate Temp: baseline Anesthetic awareness: N/A Complications: none Follow care: none
[2023-05-31] MEDS: ACETAMINOPHEN 500 MG TABLET 1000 MG PO ×3 (10:08→22:57)
[2023-05-31] MEDS: DOCUSATE SODIUM 100 MG CAPSULE PO (17:21)
[2023-06-01] MEDS: IBUPROFEN 600 MG TABLET PO (00:34)
[2023-06-01 05:30] VITALS: BP 114/75; PULSE 78; RESP 18; TEMP 36.8; O2SAT 98
[2023-06-01 05:56] LABS: HGB WITH REFLEX TO FERRITIN 8.6 (12.0-16.0)
[2023-06-01 06:54] LABS: Ferritin* 55.8 ng/mL (6.24-137.0)
[2023-06-01] MEDS: DOCUSATE SODIUM 100 MG CAPSULE PO (08:29)
[2023-06-01 08:31] VITALS: BP 120/83; PULSE 78; RESP 16; TEMP 36.7; O2SAT 98
--- NOTE | 2023-06-01 08:37 | P.DS_ITS ---
Documented by User: [place] 06/01/23 11:03 DS: Providers Provider Time Seen by Provider: 08:38 Date Seen: 06/01/23 Date of admission: 05/29/23 23:09 Primary care physician: Not a Local Provider Admitting Clinician: Ellie Ogden MD Attending Physician on discharge: Ellie Ogden MD DS: Diagnosis Discharge Diagnosis (1) care following vaginal delivery: Status: Acute (2) Anemia due to acute blood loss: Status: Acute (3) Lactating mother: Status: Acute (4) Pre-eclampsia affecting childbirth: Status: Acute Exam Narrative: Exam Narrative: GENERAL APPEARANCE:? normal affect, alert, no distress MOOD:? appropriate CHEST:? clear to auscultation HEART:? regular rate and rhythm ABDOMEN:? soft, non-tender the uterine fundus firm. Midline and is appropriate for the stage of recovery. [place] : Small PERINEUM:? mild edema of the perineum, there is a Perineal Laceration,?that is healing well. EXTREMITIES:? normal and edema Const: Vital Signs, click to edit/add: Vital Signs - 24 hr 05/31/23 09:26 05/31/23 09:52 05/31/23 10:30 Temperature 98.2 F 97.9 F 98.1 F Pulse Rate 84 78 75 Pulse Rate [Pulse Oximeter] Respiratory Rate 16 12 16 Blood Pressure 101/60 134/78 94/61 Blood Pressure [Ri ght Arm] Pulse Oximetry 99 98 98 Oxygen Delivery Me thod 05/31/23 11:43 05/31/23 12:00 05/31/23 20:59 Temperature 98.2 F 98.2 F 97.2 F L Pulse Rate 86 Pulse Rate [Pulse Oximeter] 86 94 Respiratory Rate 12 12 18 Blood Pressure 105/69 Blood Pressure [Ri ght Arm] 105/69 117/75 Pulse Oximetry 97 97 98 Oxygen Delivery Me thod Room Air Room Air 05/31/23 23:22 06/01/23 05:30 06/01/23 08:31 Temperature 98.1 F 98.3 F 98.0 F Pulse Rate Pulse Rate [Pulse Oximeter] 86 78 78 Respiratory Rate 16 18 16 Blood Pressure Blood Pressure [Ri ght Arm] 103/64 114/75 120/83 Pulse Oximetry 98 98 98 Oxygen Delivery Me thod Room Air Room Air Room Air Common normals: no apparent distress OB - DS: Summary Hospital Course Hospital Course: The patient is a 22 year old G 1 P 1 at 38.4 weeks gestation that was admitted to the Center on 05/29/23 for Spontaneous rupture of membrane. She had an uncomplicated vaginal delivery, with excessive blood loss requiring 2 unit of RBC transfusion. She delivered a viable male . She is breast/bottle feeding. Today she reports feeling well. She is ambulating with no difficulty. Vitals are stable. She is voiding. Fundus is firm and lochia is small. Hg today is 8.6 from 7.9. She is going home with iron PO. She has senna at home. the patient has done well. She is aware of weaning signs to call/ come to ER for. Pt has no concerns going home. Verbalized understanding to teaching. Peripartum Data Infant delivery method: Vaginal Laceration description: Perineal - 2nd Degree complications: transfusion [place] Gender: Male Discharge Plan: Home Status at Discharge Functional status at discharge: independent ambulation Time Spent with Patient Time attestation: Total time spent providing and/or coordinating discharge services: Time spent: Less than 30 minutes Discharge Plan Discharge Disposition: Home, Self-Care Date of Admission: 05/29/23 23:09 Attending Provider on Discharge: Roberta Adams Primary Care Provider: Provider,Not a Local Condition: Stable Anticipated Discharge Date/Time: 06/01/23 12:00 Discharge Medications: New ferrous sulfate 325 mg (65 mg iron) Tablet 325 mg PO Q OTHER DAY Qty: 90 0RF ibuprofen 600 mg Tablet 600 mg PO Q6H PRNQty: 60 0RF Continued DHA 200 mg capsule 200 mg PO DAILY acetaminophen [Tylenol Extra Strength] 500 mg tablet 500 mg PO Q6H PRN Patient Comments: Pt states she only takes half of a 500mg tab if she needs it. Discontinued aspirin [Adult Low Dose Aspirin] 81 mg tablet,delayed release (DR/EC) 81 mg PO QDAY Discharge Orders: Discharge Order (Routine); Ordered 06/01/23 Ordered By: Roberta Adams Patient Education: OB Over the Counter Medication Information, OB Vaginal/Breast Feeding Additional Instructions: Discharge instructions were reviewed with the patient including signs and symptoms of infection and home going medications Nothing vaginally for 6 weeks: no tampons or intercourse Off Work or School for 6 weeks Follow Up [facility] for a BP check?in 3 -5 days Call with BP greater than or equal to 160/110 Optional 2-week visit: discuss infant feeding concerns, review control options and screen for anxiety/depression. 6-week visit for an annual exam. consultation services are available to all mothers and babies for the first year after delivery.? To make an appointment, please call [phone]. Activity Level: Activity as Tolerated Discharge Diet: Regular Follow Up Appointments: [facility] [Provider Group] Forms: Net Transmit & Receive Info Instructions Documented by User: Roberta Adams CNM 06/01/23 11:11 DS: Providers Provider Attending Physician on discharge: Roberta Adams APRN, CNM DS: Diagnosis Discharge Diagnosis (1) care following vaginal delivery: Status: Acute (2) Anemia due to acute blood loss: Status: Acute (3) Lactating mother: Status: Acute (4) Pre-eclampsia affecting childbirth: Status: Acute Exam Const: Documenting provider has reviewed patient's vital signs: yes OB - DS: Summary Hospital Course Hospital Course: The patient is a 22 year old G 1 P 1 at 38.4 weeks gestation that was admitted to the Center on 05/29/23 for Spontaneous rupture of membrane. She had an uncomplicated vaginal delivery, with excessive blood loss requiring 2 unit of RBC transfusion. She delivered a viable male infant. She is breast/bottle feeding. Today she reports feeling well. She is ambulating with no difficulty. Vitals are stable. She is voiding. Fundus is firm and lochia is small. Hgb today is 8.6 from 7.9. She is going home with iron PO. She has senna at home. the patient has done well. She is aware of weaning signs to call/ come to ER for. Pt has no concerns going home. Verbalized understanding to teaching. plan: Discharge home with baby. Follow up in 2 weeks and 6 weeks. , may see if needed Hgb 8.6. Iron supplement ordered orally every other day Pre-E diagnosed by elevated BP greater than 4 hours apart with elevated p/c ratio Labs WNL or stable with trending Discharge home with BP cuff if does not already have one Follow up in 3-5 days Call for signs/symptoms of preeclampsia I,?Roberta Adams, CHELSI, CNM, was present for visit and have reviewed and agree with documentation by the Certified Nurse Midwifery Student. Discharge Plan Discharge Disposition: Home, Self-Care Date of Admission: 05/29/23 23:09 Attending Provider on Discharge: Roberta Adams Primary Care Provider: Provider,Not a Local Condition: Stable Anticipated Discharge Date/Time: 06/01/23 12:00 Discharge Medications: New ferrous sulfate 325 mg (65 mg iron) Tablet 325 mg PO Q OTHER DAY Qty: 90 0RF ibuprofen 600 mg Tablet 600 mg PO Q6H PRNQty: 60 0RF Continued DHA 200 mg capsule 200 mg PO DAILY acetaminophen [Tylenol Extra Strength] 500 mg tablet 500 mg PO Q6H PRN Patient Comments: Pt states she only takes half of a 500mg tab if she needs it. Discontinued aspirin [Adult Low Dose Aspirin] 81 mg tablet,delayed release (DR/EC) 81 mg PO QDAY Discharge Orders: Discharge Order (Routine); Ordered 06/01/23 Ordered By: Roberta Adams Patient Education: OB Over the Counter Medication Information, OB Vaginal/Breast Feeding Additional Instructions: Discharge instructions were reviewed with the patient including signs and symptoms of infection and home going medications Nothing vaginally for 6 weeks: no tampons or intercourse Off Work or School for 6 weeks Follow [facility] for a BP check?in 3 -5 days Call with BP greater than or equal to 160/110 Optional 2-week visit: discuss feeding concerns, review control options and screen for anxiety/depression. 6-week visit for an annual exam. consultation services are available to all mothers and babies for the first year after delivery.? To make an appointment, please call [phone]. Activity Level: Activity as Tolerated Discharge Diet: Regular Follow Up Appointments: [facility] [Provider Group] Forms: Net Transmit & Receive Info Instructions
[2023-06-01] MEDS: ACETAMINOPHEN 500 MG TABLET 1000 MG PO (13:03)
[2023-06-01 16:34] LABS: Rapid Plasma Reagin (RPR) Non Reactive (Non Reactive)
== END 2023-06-01 12:30 | disposition home or self-care (01) | DRG 560 ==
LOC: OB OUT 23:09 → OB 23:09
PROVIDERS: Advanced Practice Midwife; Admitting Provider Obstetrics & Gynecology; Visit Provider Obstetrics & Gynecology
DX: O42.02 Full-term premature rupture of membranes, onset of labor within 24 hours of rupture (principal); O13.4 Gestational [pregnancy-induced] hypertension without significant proteinuria, complicating childbirth; O14.05 Mild to moderate pre-eclampsia, complicating the puerperium; O99.03 Anemia complicating the puerperium; D62 Acute posthemorrhagic anemia; O72.1 Other immediate postpartum hemorrhage; R42 Dizziness and giddiness; O70.1 Second degree perineal laceration during delivery; O99.214 Obesity complicating childbirth; O99.013 Anemia complicating pregnancy, third trimester; D64.9 Anemia, unspecified; Z3A.38 38 weeks gestation of pregnancy; Z37.0 Single live birth
CPT/HCPCS: 01967; 36415; 36430; 59200; 76819; 82565; 82570; 82728; 84112; 84156; 84450; 84460; 84520; 85018; 85025; 85027; 86592; 86850; 86900; 86901; 86922; A9270; J2001; J2270; J2795; J3010; J7120; P9016